=== PATIENT | female | born 1955 | race Caucasian/White ===

== ENCOUNTER 2021-05-16 10:15 | Emergency (ER) | payer MEDICARE, OTHER ==
[~2021-05-16] VITALS: Ht 162.6 cm; Wt 108.9 kg
[~2021-05-16 10:15] MED LIST: CYCLOBENZAPRINE5 MG PO; DICLOFENAC SODI75 MG PO; ELIQUIS2.5 MG PO; NEURONTIN 300300 M1 PO; RANITIDINE 150150 M1 PO
[2021-05-16] MEDS ORDERED: ALLOPURINOL 10100 M1 PO (10:30)
[2021-05-16] MEDS ORDERED: FLEXERIL PO (10:30)
[2021-05-16] MEDS ORDERED: DICLOFENAC SOD100 G1 TOP (10:30)
[2021-05-16] MEDS ORDERED: VALTREX1000 MG PO (12:47)
[2021-05-16] MEDS ORDERED: CLEOCIN HCL300 MG PO (12:47)
[2021-05-16 13:09] VITALS: BP 134/72
== END 2021-05-16 13:10 | disposition home or self-care (01) ==
LOC: M.ERS 10:15
DX: S70.261A Insect bite (nonvenomous), right hip, initial encounter (principal); L03.115 Cellulitis of right lower limb; K21.9 Gastro-esophageal reflux disease without esophagitis; Z79.899 Other long term (current) drug therapy; Z88.0 Allergy status to penicillin; W57.XXXA Bitten or stung by nonvenomous insect and other nonvenomous arthropods, initial encounter; Y93.89 Activity, other specified; Y92.89 Other specified places as the place of occurrence of the external cause; Y99.8 Other external cause status